=== PATIENT | female | born 1985 | race African-American/Black ===

== ENCOUNTER 2017-06-26 20:17 | Emergency (ER) | payer OTHER ==
[~2017-06-26] VITALS: Ht 172.7 cm; Wt 54.4 kg
--- NOTE | ~2017-06-26 | CR282 ---
[facility]. [facility] A Service of [facility] & [facility] RADIOLOGY TEXT RESULTS PATIENT: HANS GODOY LOCATION: SED : 85 UNIT #: [id number] AGE: [address]: Bang Augustine MD SEX: F ORDER DR: [id number] [place] [id number] E MR#: [id number] Acc #: [id number] NAME: HANS GODOY : 1985 SEX: F STUDY DATE/TIME: 06/26/2017 21:48 UNIT: SED ROOM: STUDY DESCRIPTION: CR Wrist Min 3 View Rt Attending Physician: Bang Augustine M.D. Ordering Physician: Bang Augustine M.D. Primary Care Physician: No Primary Care Physician MEDICAL IMAGING REPORT This report is preliminary unless electronic signature is present. EXAM Right wrist, 06/26/2017. HISTORY 31-year-old female with right wrist pain status post fall today. COMPARISON Right hand same date. FINDINGS Four views of the right wrist demonstrate no acute fracture or dislocation. Soft tissues are unremarkable. IMPRESSION Unremarkable right wrist. Dictated by... Lonnie Bautista M.D. THIS IS AN ELECTRONICALLY VERIFIED REPORT Lonnie Bautista M.D. at 06/28/2017 10:44 AM YOEL/crissy TD: 06/27/2017 21:46 JOB #: [id number] MEDICAL IMAGING REPORT Page 1 of 1
--- NOTE | ~2017-06-26 | CR142 ---
[facility]. [facility] A Service of [facility] & [facility] RADIOLOGY TEXT RESULTS PATIENT: HANS GODOY LOCATION: SED : 85 UNIT #: [id number] AGE: [address]: Bang Augustine MD SEX: F ORDER DR: [id number] [place] [id number] E MR#: [id number] Acc #: [id number] NAME: HANS GODOY : 1985 SEX: F STUDY DATE/TIME: 06/26/2017 21:48 UNIT: SED ROOM: STUDY DESCRIPTION: CR Hand Min 3 Views Rt Attending Physician: Bang Augustine M.D. Ordering Physician: Bang Augustine M.D. Primary Care Physician: No Primary Care Physician MEDICAL IMAGING REPORT This report is preliminary unless electronic signature is present. EXAM Right hand, 06/26/2017. HISTORY 31-year-old female with right hand pain status post fall today. COMPARISON Right wrist same date. FINDINGS Three views of the right hand demonstrate no acute fracture or dislocation. Soft tissues are unremarkable. IMPRESSION Unremarkable right hand. Dictated by... Lonnie Bautista M.D. THIS IS AN ELECTRONICALLY VERIFIED REPORT Lonnie Bautista M.D. at 06/28/2017 10:44 AM YOEL/crissy TD: 06/27/2017 21:47 JOB #: [id number] MEDICAL IMAGING REPORT Page 1 of 1
--- NOTE | ~2017-06-26 | CR127 ---
[facility] A Service of [facility] & [facility] RADIOLOGY TEXT RESULTS PATIENT: HANS GODOY LOCATION: SED : 85 UNIT #: [id number] AGE: [address]: Bang Augustine MD SEX: F ORDER DR: [id number] [place] [id number] E MR#: [id number] Acc #: [id number] NAME: HANS GODOY : 1985 SEX: F STUDY DATE/TIME: 06/26/2017 21:48 UNIT: SED ROOM: STUDY DESCRIPTION: CR Foot Complete Min 3 View Rt Attending Physician: Bang Augustine M.D. Ordering Physician: Bang Augustine M.D. Primary Care Physician: No Primary Care Physician MEDICAL IMAGING REPORT This report is preliminary unless electronic signature is present. EXAM Right foot, 06/26/2017. HISTORY 31-year-old female with right foot pain, status post fall today. COMPARISON Right foot, 03/27/2013. FINDINGS Three views of the right foot demonstrate no acute fracture or dislocation. Soft tissues are unremarkable. IMPRESSION Unremarkable right foot. Dictated by... Lonnie Bautista M.D. THIS IS AN ELECTRONICALLY VERIFIED REPORT Lonnie Bautista M.D. at 06/28/2017 10:44 AM YOEL/crissy TD: 06/27/2017 21:48 JOB #: [id number] MEDICAL IMAGING REPORT Page 1 of 1
--- NOTE | ~2017-06-26 | CR21 ---
[facility] A Service of [facility] & [facility] RADIOLOGY TEXT RESULTS PATIENT: HANS GODOY LOCATION: SED : 85 UNIT #: [id number] AGE: [address]: Bang Augustine MD SEX: F ORDER DR: [id number] [place] [id number] E MR#: [id number] Acc #: [id number] NAME: HANS GODOY : 1985 SEX: F STUDY DATE/TIME: 06/26/2017 21:48 UNIT: SED ROOM: STUDY DESCRIPTION: CR Ankle Min 3 Views Rt Attending Physician: Bang Augustine M.D. Ordering Physician: Bang Augustine M.D. Primary Care Physician: No Primary Care Physician MEDICAL IMAGING REPORT This report is preliminary unless electronic signature is present. EXAM Right ankle, 06/26/2017. HISTORY 31-year-old female with right ankle pain, status post fall today. COMPARISON Right ankle, 03/27/2013. FINDINGS Three views of the right ankle demonstrate no acute fracture or dislocation. Ankle mortise symmetric. Talar dome intact. No joint effusion. Soft tissues are unremarkable. IMPRESSION Unremarkable right ankle. Dictated by... Lonnie Bautista M.D. THIS IS AN ELECTRONICALLY VERIFIED REPORT Lonnie Bautista M.D. at 06/28/2017 10:44 AM YOEL/crissy TD: 06/27/2017 21:47 JOB #: [id number] MEDICAL IMAGING REPORT Page 1 of 1
[~2017-06-26 20:17] MED LIST: BACTRIM DS TABL1 TA1 PO; FLEXERIL10 M1 PO; IBUPROFEN PO; IBUPROFEN800 MG PO; NAPROSYN250 M1 PO; NO MEDICATIONS; PYRIDIUM PO; VICODIN 5/500 T1 TAB
== END 2017-06-26 23:26 | disposition home or self-care (01) ==
LOC: SED 20:17
DX: S93.401A Sprain of unspecified ligament of right ankle, initial encounter (principal); S93.601A Unspecified sprain of right foot, initial encounter; S63.501A Unspecified sprain of right wrist, initial encounter; F17.200 Nicotine dependence, unspecified, uncomplicated; W18.30XA Fall on same level, unspecified, initial encounter; Y93.02 Activity, running; Y92.410 Unspecified street and highway as the place of occurrence of the external cause; Y99.8 Other external cause status
CPT/HCPCS: 29125; 29540; 73110; 73130; 73610; 73630; 90471; 90715; 99284